=== PATIENT | male | born 2005 | race Two or more races ===

== ENCOUNTER 2025-02-01 15:41 | Emergency (ER) | payer MEDICAID, OTHER ==
[~2025-02-01] VITALS: Ht 175.3 cm; Wt 108.8 kg
--- NOTE | 2025-02-01 16:03 | ED.PDOC ---
History of Present Illness HPI Comments 19-year-old male presents to the ED with a chief complaint of a 7 x 8 cm epidermoid cyst to the right supraspinatus region. Patient states that the cyst has been developing over time with the past few months, and states his primary care physician prescribed three different forms of antibiotics as well as acne cream, but stated if worsened to presents to the ED. cyst is noted to be blanchable, with no drainage. Denies chest pain shortness of breath Denies inability to move neck, history of meningitis Denies difficulty swallowing nor persistent salivation Denies fevers chills night sweats Denies persistent cough, runny nose, congestion Denies loss of appetite, unintentional weight loss over the past 3 months Denies voice changes Denies history of asthma or seasonal allergies Chief Complaint: Wound Check Time Seen by MD: 15:57 Reviewed Notes: Nurses Notes, Medications, Allergies Allergies: Coded Allergies: NO KNOWN ALLERGIES (Unverified , 02/01/25) Information Source: Patient Mode of Arrival: Ambulatory Severity: Moderate Timing: Months Prehospital treatment: None Past Medical History PAST MEDICAL HISTORY: Denies Family History Family History: Unknown Social History Smoker: Non-Smoker Alcohol: Denies ETOH Use Drugs: Denies Drug Use Lives In: Home Constitutional: denies: chills, diaphoresis, fatigue, fever, malaise, sweats, weakness, others EENTM: denies: blurred vision, double vision, ear bleeding, ear discharge, ear drainage, ear pain, ear ringing, eye pain, eye redness, hearing loss, mouth pain, mouth swelling, nasal discharge, nose bleeding, nose congestion, nose pain, photophobia, tearing, throat pain, throat swelling, voice changes, others Respiratory: denies: cough, hemoptysis, orthopnea, SOB at rest, shortness of breath, SOB with excertion, stridor, wheezing, others Cardiovascular: denies: chest pain, dizzy spells, diaphoresis, Dyspnea on exertion, edema, irregular heart beat, left arm pain, lightheadedness, palpitations, PND, syncope, others Gastrointestinal: denies: abdomen distended, abdominal pain, blood streaked bowels, constipated, diarrhea, dysphagia, difficulty swallowing, hematemesis, melena, nausea, poor appetite, poor fluid intake, rectal bleeding, rectal pain, vomiting, others Genitourinary: denies: burning, dysuria, flank pain, frequency, hematuria, incontinence, penile discharge, penile sore, pain, testicle pain, testicle swelling, urgency, others Neurological: denies: dizziness, fainting, headache, left sided numbness, left sided weakness, numbness, paresthesia, pre-existing deficit, right sided numbness, right sided weakness, seizure, speech problems, tingling, tremors, weakness, others Musculoskeletal: denies: back pain, gout, joint pain, joint swelling, muscle pain, muscle stiffness, neck pain, others Integumetry: reports: lumps, wounds; denies: bruises, change in color, change in hair/nails, dryness, laceration, lesions, rash, others Allergic/Immunocompromised: denies: Difficulty Healing, Frequent Infections, Hives, Itching, others Hematologic/Lymphatic: denies: anemia, blood clots, easy bleeding, easy bruising, swollen glands, others Endocrine: denies: excessive hunger, excessive sweating, excessive thirst, excessive urination, flushing, intolerance to cold, intolerance to heat, unexplained weight gain, unexplained weight loss, others Psychiatric: denies: anxiety, bipolar disorder, depression, hopeless, panic disorder, schizophrenia, sleepless, suicidal, others All Other Systems: Reviewed and Negative Physical Exam General Appearance: Mild Distress, Normal HEENT: Normal ENT Inspection, Pharynx Normal, TMs Normal Neck: Full Range of Motion, Non-Tender, Normal, Normal Inspection Respiratory: Chest Non-Tender, Lungs Clear, No Accessory Muscle Use, No Respiratory Distress, Normal Breath Sounds Cardiovascular: No Edema, No JVD, No Murmur, No Gallop, Normal Peripheral Pulses, Regular Rate/Rhythm Breast Exam: Deferred Gastrointestinal: No Organomegaly, Non Tender, No Pulsatile Mass, Normal Bowel Sounds, Soft Genitalia: Deferred Pelvic: Deferred Rectal: Deferred Extremities: No calf tenderness, Normal capillary refill, Normal inspection, Normal range of motion, Non-tender, No pedal edema Musculoskeletal : Location: Right Extremity Location: Shoulder (Supraspinatus: Firm mobile mass 7 x 8 cm. Non erythematous nontender. Nonfluctuant. Mobile) Apperance: Normal Neurologic: Alert, sheet hanger II-XII nml as Tested, No Motor Deficits, Normal Affect, Normal Mood, No Sensory Deficits Cerebellar Function: Normal Reflexes: Normal Skin: Dry, Normal Color, Warm Lymphatic: No Adenopathy Was a procedure done? Was a procedure done?: No X-Ray, Labs, Meds, VS Vital Signs Date Time Temp Pulse Resp B/P (MAP) Pulse Ox O2 Delivery O2 Flow Rate FiO2 02/01/25 15:44 97.7 78 20 127/78 95 97.7 X-Ray, Labs, Meds, VS Comment 19-year-old male presents to the ED with a chief complaint of a 7 x 8 cm epidermoid cyst to the right supraspinatus region. Patient arrives alert and oriented, ABC's intact, afebrile, vital signs stable, saturating well in room air Soft tissue neck and right upper extremity ultrasound was ordered to rule out any possible epidermoid cyst: Diagnostic imaging ordered by me and results interpreted by radiology :Findings /impression:4.7 x 2.4 x 2.3 cm irregular complex fluid collection over the right shoulder region area of interest. An abscess is within the differential. CT with contrast may be considered for further evaluation if clinically indicated. Labs in the ED showed (pertinent+ and then pertinent-) Patient was given:_. Tolerated medications with no adverse reaction. On reevaluation, patient had symptomatic improvement. Patient is stable for discharge at this time. External notes reviewed. Test results and diagnostic imaging interpreted. All diagnostic findings, discharge care, education and instructions provided Follow-up with PCP in 2 to 3 days Patient verbalized understanding and agreed to treatment plan Vital signs stable, afebrile, no acute distress noted Patient ambulatory with strong steady gait Advised to return precautions for any new or worsening symptoms, return to ER immediately for re-evaluation Patient is aware that the purpose of this visit was for an acute medical emergency requiring emergent stabilization. Chronic conditions, including malignancies have not been ruled out. Patient is instructed to follow up with PCP as directed and discharge instructions for continued care and workup. If unable to arrange follow-up, patient is to return to the emergency department for reassessment. Patient (parent or legal guardian if applicable) was given verbal and written discharge instructions and acknowledges understanding. Additional MDM Review of External, Non-ED records: External records reviewed. Discussion with independent historian (EMS, family) history obtained from the patient/parents (if applicable) at bedside Chronic conditions affecting care: None Social determinants of health affecting care: None Time of Reevaluation: 04:27 Reevaluation 1ST: Unchanged Patient Education/Counseling: Diagnosis, Treatment, Need For Follow Up Family Education/Counseling: No Family Present SEPSIS Sepsis Screen Physician Orders Right Upper Ext. (02/01/25 15:58) Vital Signs Date Time Temp Pulse Resp B/P (MAP) Pulse Ox O2 Delivery O2 Flow Rate FiO2 02/01/25 15:44 97.7 78 20 127/78 95 97.7 Departure 1 Departure Time of Disposition: 17:32 Impression: Primary Impression: Mass of shoulder region Disposition: 01 HOME / SELF CARE / HOMELESS Condition: Stable e-Prescriptions Sulfamethoxazole W/Trimethopri (Bactrim Ds Tablet) 1 Tab Tb 1 TAB PO BID for 7 Days, #14 TAB 0 Refills Prov: BARBARA ALVAREZ NP 02/01/25 Critical Care Note Critical Care Time?: No Stability Stability form required: No Heart Score Heart Score: Heart Score Response (Comments) Value History N/A 0 EKG N/A 0 Age N/A 0 Risk Factors N/A 0 Troponin N/A 0 Total 0 I personally scribed for BARBARA ALVAREZ CHECKER STOCKER ([email or web address]) on 02/01/25 at 16:03. Electronically submitted by José Umaña ([employer]). I personally scribed for BARBARA ALVAREZ CHECKER STOCKER ([email or web address]) on 02/01/25 at 16:07. Electronically submitted by José Umaña ([email or web address]). I personally scribed for BARBARA ALVAREZ NP ([email or web address]) on 02/01/25 at 16:30. Electronically submitted by José Umaña ([email or web address]). I personally scribed for BARBARA ALVAREZ CHECKER STOCKER ([email or web address]) on 02/01/25 at 16:48. Electronically submitted by Hollie Camp ([employer]). BARBARA ALVAREZ NP Feb 01, 2025 16:03
--- NOTE | 2025-02-01 16:37 | DVH ---
Procedure: US Right upper Ext. Study Date and Requested Time: 02/01/2025 03:57 PM RT POST SHOULDER R/O ABSCESS Comparison: None Technique: Multiple high resolution berman-scale images with spectral doppler flow of the right posteri or shoulder is obtained for evaluation of shoulder lump Findings /impression: 4.7 x 2.4 x 2.3 cm irregular complex fluid collection over the right shoulder region area of interest . An abscess is within the differential. CT with contrast may be considered for further evaluation i f clinically indicated.
[2025-02-01] MEDS ORDERED: BACDST PO (17:33)
[2025-02-01 17:50] VITALS: BP 125/69; PULSE 69; RESP 17; TEMP 99.2; O2SAT 97
== END 2025-02-01 17:53 | disposition home or self-care (01) ==
LOC: ER 15:41
DX: C76.41 Malignant neoplasm of right upper limb (principal); Z79.899 Other long term (current) drug therapy
CPT/HCPCS: 76881